=== PATIENT | female | born 1945 | race Caucasian/White ===

== ENCOUNTER 2018-03-09 14:48 | Emergency (ER) | payer MEDICARE, BC, SELFPAY ==
[2018-03-09 14:58] VITALS: BP 155/89; PULSE 74; RESP 20; TEMP 36.7; O2SAT 97
--- NOTE | 2018-03-09 17:12 | DI.RAD.S_ITS ---
PROCEDURE: XR ANKLE RT MIN 3V INDICATIONS: ankle pain TECHNIQUE: 3 views of the ankle were acquired. COMPARISON: None. FINDINGS: Bones: No fractures or dislocations. Ankle mortise is normally aligned. No suspicious bony lesions. Soft tissues: No tibiotalar joint effusion. Achilles tendon appears normal. IMPRESSION: No acute radiographic findings. If pain persists, repeat imaging in 5-7 days is recommended to exclude occult fracture. Dictated by: Fern Kraus M.D. on 03/09/2018 at 17:32 Approved by: Fern Kraus M.D. on 03/09/2018 at 17:33
[2018-03-09 18:02] VITALS: BP 150/77; PULSE 61; RESP 15; TEMP 36.6; O2SAT 98
--- NOTE | 2018-03-09 22:40 | ED_ITS ---
HPI - Extremity Injury (Lower) <RAFAELA Waldrop - Last Filed: 03/09/18 22:45> General Chief Complaint: Extremity Injury, Lower Stated Complaint: left leg pain after stepping on something Time Seen by Provider: 03/09/18 17:00 Source: patient Mode of arrival: ambulatory Limitations: no limitations History of Present Illness HPI Narrative: Patient is a 72-year-old female who presents with chief complaint of left ankle pain for 2 weeks. She states she stepped on a piece of grass and slipped with her ankle rolling in. The patient initially declined an x-ray as she was worried about radiation, later requested an x-ray. She denies any numbness tingling or weakness. She states she has applied ice. She states she has never hurt her ankle before. She was requesting an x-ray. Related Data Home Medications Medication Instructions Recorded Confirmed ascorbic acid (vitamin C) [Vitamin 500 mg PO DAILY 03/09/18 03/09/18 C] atenolol [Tenormin] 1 tab PO QPM 03/09/18 03/09/18 cholecalciferol (vitamin D3) 1,000 unit PO DAILY 03/09/18 03/09/18 [Vitamin D3] Allergies Allergy/AdvReac Type Severity Reaction Status Date / Time epinephrine AdvReac Verified 03/09/18 15:07 Review of Systems <RAFAELA Waldrop - Last Filed: 03/09/18 22:45> Review of Systems GENERAL: Denies chills, fatigue, malaise, fever, sweats. HEENT: Denies sinus pain, ear pain, sore throat, difficulty swallowing, dizziness. RESPIRATORY: Denies dyspnea, cough, wheezing, hemoptysis, sputum. CARDIOVASCULAR: Denies chest pain, palpitations, orthopnea, edema, GASTROINTESTINAL: Denies nausea, vomiting, abdominal pain, diarrhea, constipation, melena. : Denies dysuria, frequency, incontinence, hematuria, urinary retention. MUSCULOSKELETAL: See HPI SKIN: Denies rash, skin lesions, or other NEUROLOGIC: Denies weakness, headache, numbness, change in speech, confusion, seizures, incoordination. PSYCHIATRIC: No concerning psychosocial issues. 12 point review of systems is negative except for those stated above Exam <RAFAELA Waldrop - Last Filed: 03/09/18 22:45> Narrative Exam Narrative: GENERAL: This is a well-nourished, well-developed patient, No acute distress HEAD: Atraumatic. Normocephalic. No temporal or scalp tenderness. EYES: Pupils equal round and reactive. Extraocular motions intact. No scleral icterus. No injection or drainage. ENT: Nose without bleeding, purulent drainage or septal hematoma. Throat without erythema, tonsillar hypertrophy or exudate. Uvula midline. Airway patent. NECK: Trachea midline. No JVD or lymphadenopathy. Supple, nontender, no meningeal signs. CARDIOVASCULAR: Regular rate and rhythm. RESPIRATORY: Clear to auscultation. Breath sounds equal bilaterally. No wheezes , rales, or rhonchi. GASTROINTESTINAL: Abdomen soft, non-tender, nondistended. No hepato-splenomegaly , or palpable masses. No guarding. EXTREMITIES: Left ankle pain to palpation generalized. Patient is able to flex, extend pronate and supinate left foot. Positive left foot pulses. BACK: Nontender without deformity or crepitance. No flank tenderness. NEURO: AOx3. SKIN: No rash or erythema. no erythema, ecchymosis or swelling noted left ankle. Initial Vital Signs Initial Vital Signs: Vital Signs Temperature 98.0 F 03/09/18 14:58 Pulse Rate 74 03/09/18 14:58 Respiratory Rate 20 03/09/18 14:58 Blood Pressure 155/89 H 03/09/18 14:58 Pulse Oximetry 97 03/09/18 14:58 <Elbert Sánchez DO - Last Filed: 03/12/18 18:19> Initial Vital Signs Initial Vital Signs: Vital Signs Temperature 98.0 F 03/09/18 14:58 Pulse Rate 74 03/09/18 14:58 Respiratory Rate 20 03/09/18 14:58 Blood Pressure 155/89 H 03/09/18 14:58 Pulse Oximetry 97 03/09/18 14:58 Course <CELESTE Waldrop - Last Filed: 03/09/18 22:45> Orders Ordered: ED Orders 03/09/18 17:12 XR ankle RT min 3V Stat Vital Signs - 8 hr 03/09/18 14:58 03/09/18 18:02 Temperature 98.0 F 97.9 F Pulse Rate 74 61 Respiratory Rate 20 15 Blood Pressure 155/89 H Blood Pressure [Right Arm] 150/77 H Pulse Oximetry 97 98 <Elbert WagnerDO shania - Last Filed: 03/12/18 18:19> Orders Ordered: ED Orders 03/09/18 17:12 XR ankle RT min 3V Stat Vital Signs - 8 hr 03/09/18 14:58 03/09/18 18:02 Temperature 98.0 F 97.9 F Pulse Rate 74 61 Respiratory Rate 20 15 Blood Pressure 155/89 H Blood Pressure [Right Arm] 150/77 H Pulse Oximetry 97 98 MDM - Extremity Injury (Lower) <CELESTE Waldrop - Last Filed: 03/09/18 22:45> Differential Diagnosis Likely ankle sprain and strain Imaging Data ankle xray : Radiologist's impression: [address] [address] XRay Report Signed Patient: Ruiz Moran#: [id number] : 5Acct:[id number] Age/Sex: 72 / FDate of Service: 03/09/18 Loc: ED Accession Number: [id number] Procedure: XR ankle RT min 3V Ordering Provider: Hilaria Pierre PROCEDURE: XR ANKLE RT MIN 3V INDICATIONS: ankle pain TECHNIQUE: 3 views of the ankle were acquired. COMPARISON: None. FINDINGS: Bones: No fractures or dislocations. Ankle mortise is normally aligned. No suspicious bony lesions. Soft tissues: No tibiotalar joint effusion. Achilles tendon appears normal. IMPRESSION: No acute radiographic findings. If pain persists, repeat imaging in 5-7 days is recommended to exclude occult fracture. Dictated by: Fern Kraus M.D. on 03/09/2018 at 17:32 Approved by: Fern Kraus M.D. on 03/09/2018 at 17:33 [facility] Narrative Medical decision making narrative: the patient is a 72-year-old female with left ankle pain. X-ray illustrate no fracture. She is ambulating without problems in the emergency department. I discussed at length conservative measures as well as follow up with primary care provider. Patient states she will follow up with her primary care provider if no improvement. No questions or concerns upon discharge. Discharge Plan Departure Patient Disposition: Home Clinical Impression: Acute ankle pain Discharge Date/Time: 03/09/18 18:21 Interventions: ED Discharge Assessment Last Done: 03/09/18 18:20 Instructions: How To Perform RICE (Rest, Ice, Compress, Elevate), DI for Ankle Pain Activity Restrictions/Additional Instructions: Your x-ray today came back negative for a fracture. Please follow-up with primary care provider if worsening or no improvement. Please follow-up in about 2 weeks if needed. Please use ice 20 min for every 3-4 hours. Please use [id number] pain medications as needed and able for pain. Prescriptions: No Action atenolol [Tenormin] 25 mg tablet 1 tab PO QPM RF: 0 ascorbic acid (vitamin C) [Vitamin C] 500 mg Tablet 500 mg PO DAILY RF: 0 cholecalciferol (vitamin D3) [Vitamin D3] 1,000 unit Capsule 1,000 unit PO DAILY RF: 0 <Elbert Sánchez DO - Last Filed: 03/12/18 18:19> Angie ED Attending Amee Attestation: I was available for consultation during this patient's emergency department encounter
== END 2018-03-09 18:21 | disposition home or self-care (01) ==
PROVIDERS: Emergency Provider Nurse Practitioner Family
DX: M25.572 Pain in left ankle and joints of left foot (principal); W18.41XA Slipping, tripping and stumbling without falling due to stepping on object, initial encounter
CPT/HCPCS: 29540; 73610; 99282; 99283

== ENCOUNTER 2020-10-18 14:30 | Emergency (ER) | payer MEDICARE, BC, SELFPAY ==
[2020-10-18 14:39] VITALS: BP 140/87; PULSE 107; RESP 14; TEMP 36.6; O2SAT 96; BMI 32.2
--- NOTE | 2020-10-18 14:44 | DI.RAD.S_ITS ---
PROCEDURE: XR ACUTE ABDOMEN SERIES INDICATIONS: Abdominal pain, No BM TECHNIQUE: One view chest and two views of the abdomen were acquired. COMPARISON: None. FINDINGS: Surgical changes and devices: None. Chest: Lungs are clear. Heart size is normal. No pleural effusions. No pneumoperitoneum. Abdomen: Prominent stool in the colon. Scattered small bowel gas. No dilated loops of bowel seen. No suspicious calcifications. Visualized solid organ contours appear normal. Bones: No suspicious bony lesions. Bilateral hip DJD. IMPRESSION: No acute cardiopulmonary abnormality. Prominent stool in the colon. Worrisome for constipation. Dictated by: Carmelo Barrow M.D. on 10/18/2020 at 15:19 Approved by: Carmelo Barrow M.D. on 10/18/2020 at 15:30
--- NOTE | 2020-10-18 15:43 | ED_ITS ---
HPI - Abdominal Pain General Chief Complaint: Abdominal Pain Stated Complaint: constipated for 16-17 days/shaky Time Seen by Provider: 10/18/20 14:32 Source: patient Mode of arrival: Ambulatory Limitations: no limitations History of Present Illness HPI narrative: 75F nonsmoker with HTN and chronic constipation presents with a chief complaint of 16-17 days of generalized abdominal cramping and decreased bowel movements. She does not complain much in the way of pain but just feels bloated and uncomfortable. She denies any nausea or vomiting but has decreased appetite. She has had no fever or chills. She denies any recent dietary change other than her slight decrease in appetite. She denies any use of pain medications. She denies the routine use of any laxatives and states that during this episode she has taken 2 doses of MiraLax and 2 doses of docusate without much in the way of help. She has had a few small hard firm stools that have provided little relief. She denies any hemorrhoids or rectal bleeding MD complaint: abdominal pain Onset (ago): day(s) Pain Consistency: intermittent Location: diffuse Severity: mild Quality: cramping Migration to: no migration Relieving factors: nothing Exacerbating factors: nothing Associated symptoms: constipation Related Data Home Medications Medication Instructions Recorded Confirmed ascorbic acid (vitamin C) [Vitamin 500 mg PO DAILY 03/09/18 03/09/18 C] atenolol [Tenormin] 1 tab PO QPM 03/09/18 03/09/18 cholecalciferol (vitamin D3) 1,000 unit PO DAILY 03/09/18 03/09/18 [Vitamin D3] Allergies Allergy/AdvReac Type Severity Reaction Status Date / Time epinephrine AdvReac Verified 10/18/20 14:39 Review of Systems Constitutional Constitutional: Denies chills, Denies fatigue, Denies fever(s), Denies frequent falls, Denies lethargy and Denies weakness Eyes Eyes: Denies change in vision, Denies eye discharge, Denies irritation and Asher es loss of vision ENT Ears, Nose, Mouth, and Throat: Denies change in voice, Denies dizziness, Denies neck pain, Denies sore throat and Denies throat swelling Cardiovascular Cardiovascular: Denies chest pain, Denies irregular heart rhythm, Denies lightheadedness, Denies palpitations, Denies dyspnea, Denies dyspnea on exertion and Denies orthopnea Respiratory Respiratory: Denies cough, Denies dyspnea, Denies dyspnea on exertion and Denies wheezing Gastrointestinal Gastrointestinal: Reports abdominal pain, Denies change in bowel habits, Reports constipation, Denies diarrhea, Denies nausea and Denies vomiting Musculoskeletal Musculoskeletal: Denies neck pain and Denies numbness Integumentary/Breasts Skin/Breast: Denies pruritus, Denies erythema, Denies rash and Denies wounds Neurologic Neurologic: Denies behavioral changes, Denies confusion, Denies dizziness, Denies frequent falls, Denies loss of vision, Denies numbness and Denies weakness Psychiatric Psychiatric: Denies anxiety, Denies behavioral changes, Denies confusion, Denies depression, Denies homicidal ideation and Denies suicidal ideation Endocrine Endocrine: Denies fatigue, Denies flushing and Denies palpitations Hematologic/Lymphatic Hematologic/Lymphatic: Denies easy bruising Allergic/Immunologic Allergic/Immunologic: Denies urticaria, Denies throat swelling and Denies wheezing Patient History Social History Smoking Status: Unknown if ever smoked Smoking Status: Unknown if ever smoked alcohol intake frequency: holidays/special occasions only Substance Use Type: does not use Exam Narrative Exam Narrative: GENERAL: [75] year old patient appears stated age. Well- developed patient, in mild distress. HEAD: Atraumatic. Normocephalic. EYES: Pupils equal round and reactive. Extraocular motions intact. No scleral icterus. No injection or drainage. ENT: Nose without bleeding, purulent drainage. Throat without erythema, tonsillar hypertrophy or exudate. Airway patent. NECK: Trachea midline. Non tender CARDIOVASCULAR: Regular rate and rhythm without murmurs, gallops, or rubs. RESPIRATORY: Clear to auscultation. Breath sounds equal bilaterally. No wheezes, rales, or rhonchi. GASTROINTESTINAL: Abdomen soft, non-tender, nondistended. Bowel sounds present in all 4 quadrants, however these sounds are slightly decreased. Incision in the right lower quadrant from hernia rap[place] a few months ago is clean, dry and intact without any underlying induration, fluctuance, warmth or erythema. RECTAL: Firm stool felt high in the rectal vault, unable to manually disimpact, no evidence of fissure or hemorrhoid. EXTREMITIES: No edema or joint tenderness. BACK: Nontender without deformity or crepitance. No flank tenderness. NEURO: AOx3. SKIN: No rash or erythema of visible areas Initial Vital Signs Initial Vital Signs: Vital Signs Temperature 97.9 F 10/18/20 14:39 Pulse Rate 107 H 10/18/20 14:39 Respiratory Rate 14 10/18/20 14:39 Blood Pressure 140/87 10/18/20 14:39 Pulse Oximetry 96 10/18/20 14:39 Course Orders Ordered: ED Orders 10/18/20 14:44 XR acute abdomen series Stat Vital Signs Vital signs: Vital Signs - 8 hr 10/18/20 14:39 10/18/20 15:56 Temperature 97.9 F 98.8 F Pulse Rate 107 H 73 Respiratory Rate 14 16 Blood Pressure 140/87 129/73 Pulse Oximetry 96 96 MDM - Abdominal Pain Imaging Data Abdominal x-ray: Radiologist's Impression: [address] [id number] ReportSigned Patient: Ruiz Moran#: [id number]: 5Acct:[id number]/Sex: 75 / FDate of Service: 10/18/20Loc: EDAccession Number: [id number] Procedure: XR acute abdomen series Ordering Provider: Praveen Duffy D.O. PROCEDURE: XR ACUTE ABDOMEN SERIES INDICATIONS: Abdominal pain, No BM TECHNIQUE: One view chest and two views of the abdomen were acquired. COMPARISON: None. FINDINGS: Surgical changes and devices: None. Chest: Lungs are clear. Heart size is normal. No pleural effusions. No pneumoperitoneum. Abdomen: Prominent stool in the colon. Scattered small bowel gas. No dilated loops of bowel seen. No suspicious calcifications. Visualized solid organ contours appear normal. Bones: No suspicious bony lesions. Bilateral hip DJD. IMPRESSION: No acute cardiopulmonary abnormality. Prominent stool in the colon. Worrisome for constipation. Dictated by: Carmelo Barrow M.D. on 10/18/2020 at 15:19 Approved by: Carmelo Barrow M.D. on 10/18/2020 at 15:30 MDM Narrative Medical decision making narrative: Multiple etiologies for patient's symptoms considered including: [Constipation versus bowel obstruction versus impaction versus other] Patient's symptoms improved over duration of stay with above-stated therapies. Findings and discharge diagnosis discussed with patient/family followed by verbalization of understanding Return precautions discussed with patient/family whom verbalize understanding. Discharge Plan Departure Patient Disposition: Home Clinical Impression: Constipation Qualifiers: Constipation type: unspecified constipation type Qualified Code(s): K59.00 - Constipation, unspecified Instructions: DI for Constipation Activity Restrictions/Additional Instructions: *You have been diagnosed with [ abdominal pain due to constipation ] *What to do: *Take over the counter medications as directed: 1. Metamucil - is a bulk forming laxative and adds fiber 2. Colace - softens your stool 3. Dulcolax suppository - stimulates your bowels *Follow up with your primary care provider in 2-3 days, call for appointment *Return to ER if you should have any new, worsening or concerning symptoms *Drink plenty of water and eat foods high in fiber *Stay as active as you can as this helps move your bowels as well Prescriptions: No Action atenolol [Tenormin] 25 mg tablet 1 tab PO QPM RF: 0 ascorbic acid (vitamin C) [Vitamin C] 500 mg Tablet 500 mg PO DAILY RF: 0 cholecalciferol (vitamin D3) [Vitamin D3] 1,000 unit Capsule 1,000 unit PO DAILY RF: 0 Referrals: Linsey Still MD [Primary Care Provider] -
[2020-10-18 15:56] VITALS: BP 129/73; PULSE 73; RESP 16; TEMP 37.1; O2SAT 96
== END 2020-10-18 15:56 | disposition home or self-care (01) ==
PROVIDERS: Emergency Provider Emergency Medicine; PCP Family Medicine
DX: K59.00 Constipation, unspecified (principal)
CPT/HCPCS: 74022; 99283

== ENCOUNTER 2023-04-09 16:43 | Emergency (ER) | payer MEDICARE, BC, SELFPAY ==
[2023-04-09 16:49] VITALS: BP 157/79; PULSE 77; RESP 18; TEMP 36.6; O2SAT 96; BMI 34.0
--- NOTE | 2023-04-09 17:24 | ED_ITS ---
HPI - URI/Sore Throat <Marnie Martinez PA-C - Last Filed: 04/09/23 18:59> General Chief Complaint: Upper Respiratory Symptoms Stated Complaint: lt sided throat pain, cough Time Seen by Provider: 04/09/23 17:07 Source: patient Mode of arrival: Ambulatory History of Present Illness HPI Narrative: Patient is a 77-year-old female who presents with 5 days of progressively worse left-sided sore throat without fever. She denies fever or chills, or runny nose. She does endorse a mild but progressively increasing cough productive of yellow sputum. She is traveling in a couple of days and very worried about [place] g to the airport with these symptoms. She does not have any difficulty swallowing or managing her secretions but she does have painful swallowing. She has been taking vitamin-D, vitamin-C, elderberry and her blood pressure medicine. Related Data Home Medications Medication Instructions Recorded Confirmed ascorbic acid (vitamin C) 500 mg 500 mg PO DAILY 03/09/18 03/09/18 tablet (Vitamin C) atenolol 25 mg tablet 1 tab PO QPM 03/09/18 03/09/18 cholecalciferol (vitamin D3) 25 1,000 unit PO DAILY 03/09/18 03/09/18 mcg (1,000 unit) capsule (Vitamin D3) Allergies Allergy/AdvReac Type Severity Reaction Status Date / Time epinephrine AdvReac Verified 10/18/20 14:39 Review of Systems <Marnie Martinez PA-C - Last Filed: 04/09/23 18:59> Review of Systems ROS Unobtainable: All systems reviewed & are unremarkable except as noted in HPI and below Patient History <Marnie Martinez PA-C - Last Filed: 04/09/23 18:59> Social History Smoking Status: Never smoker Smoking Status: Never smoker alcohol intake frequency: holidays/special occasions only Substance Use Type: does not use Exam <Marnie Martinez PA-C - Last Filed: 04/09/23 18:59> Narrative Exam Narrative: GENERAL: 77 year old patient appears stated age. Well-developed patient, in no distress. NEURO: AOx3. HEAD: Atraumatic. Normocephalic. EYES: Pupils equal round and reactive. Extraocular motions intact. No scleral icterus. No injection or drainage. ENT: Nose without bleeding or purulent drainage. Throat with moderate erythema, no tonsillar hypertrophy or exudate. Airway patent. Palpable tender left lymph nodes. No peritonsillar abscess, uvula midline. No pain or swelling under the tongue. No mastoid tenderness. TMs pearly coy. NECK: Trachea midline CARDIOVASCULAR: Regular rate and rhythm without murmurs, gallops, or rubs. RESPIRATORY: Clear to auscultation. Breath sounds equal bilaterally. No wheezes, rales, or rhonchi. SKIN: No rash or erythema of visible areas Initial Vital Signs Initial Vital Signs: Vital Signs Temperature 97.9 F 04/09/23 16:49 Pulse Rate 77 04/09/23 16:49 Respiratory Rate 18 04/09/23 16:49 Blood Pressure 157/79 H 04/09/23 16:49 Pulse Oximetry 96 04/09/23 16:49 Oxygen Delivery Method Room Air 04/09/23 16:49 <Hilaria Bass MD - Last Filed: 04/14/23 18:20> Initial Vital Signs Initial Vital Signs: Vital Signs Temperature 97.9 F 04/09/23 16:49 Pulse Rate 77 04/09/23 16:49 Respiratory Rate 18 04/09/23 16:49 Blood Pressure 157/79 H 04/09/23 16:49 Pulse Oximetry 96 04/09/23 16:49 Oxygen Delivery Method Room Air 04/09/23 16:49 Course <Marnie Martinez PA-C - Last Filed: 04/09/23 18:59> Orders Ordered: ED Orders 04/09/23 17:22 Strep Grp A by PCR Rapid Stat Throat Culture Stat Vital Signs Vital signs: Vital Signs - 8 hr 04/09/23 16:49 04/09/23 18:07 Temperature 97.9 F Pulse Rate 77 79 Respiratory Rate 18 19 Blood Pressure 157/79 H 152/80 H Pulse Oximetry 96 97 Oxygen Delivery Method Room Air Room Air <Hilaria Bass MD - Last Filed: 04/14/23 18:20> Orders Ordered: ED Orders 04/09/23 17:22 Strep Grp A by PCR Rapid Stat Throat Culture Stat Vital Signs Vital signs: Vital Signs - 8 hr 04/09/23 16:49 04/09/23 18:07 Temperature 97.9 F Pulse Rate 77 79 Respiratory Rate 18 19 Blood Pressure 157/79 H 152/80 H Pulse Oximetry 96 97 Oxygen Delivery Method Room Air Room Air MDM - URI/Sore Throat <Marnie Martinez PA-C - Last Filed: 04/09/23 18:59> Lab Data Labs: Lab Results 04/09/23 Range/Units 17:22 Group A Strep (PCR) Negative (Negative) MDM Narrative Medical decision making narrative: Multiple etiologies for patient's symptoms considered including, but not limited to: Strep pharyngitis, viral pharyngitis, no physical exam evidence of peritonsillar abscess, Blayne's angina, neck deep space infection, mastoiditis. Rapid strep negative. We will send throat culture and notify patient if positive. In the meantime, I suggest continued supportive care with [id number]-[id number] pain medicines, tea with honey, warm compresses. Patient's symptoms improved over duration of stay with above-stated therapies. Findings and discharge diagnosis discussed with patient/family followed by verbalization of understanding Return precautions discussed with patient/family whom verbalize understanding of diagnosis and plan <Hilaria Bass MD - Last Filed: 04/14/23 18:20> Lab Data Labs: Lab Results 04/09/23 Range/Units 17:22 Group A Strep (PCR) Negative (Negative) Discharge Plan Departure Patient Disposition: Home Clinical Impression: Acute viral pharyngitis, Anterior cervical lymphadenopathy Instructions: DI for Viral Pharyngitis Activity Restrictions/Additional Instructions: *You have been diagnosed with viral pharyngitis, the test for strep throat was negative. We will watch the culture in the lab to see if any other infection grows. I suspect that the pain your feeling is due to the inflammation in your throat as well as the enlarged lymph node on the left side. I would advise you to take Tylenol for pain, continue hydration, tea with lemon and honey. Some people find it beneficial to gargle with warm salt water which can help decrease the swelling in the throat. *What to do: *Please continue to take your regular medications as directed. [ ] New medication prescriptions sent to your pharmacy: [ ] [ ] New medication written as a paper prescription [x] No new medications given *Please follow up with your primary care provider in 2-3 days, call for an appointment. Let them know you were seen in the Emergency Department and that we ask that you be seen in follow up. We will electronically transmit a record of today's note if your PCP is in our system *If you do not have a primary care provider please contact the [facility] Resource line at [phone]. They will ask some questions about your medical history and help get you set up with a doctor in the community. *Return to Emergency Department if you should have any new, worsening or concerning symptoms, such as [fever greater than 101 F, shaking chills, worsening pain, persistent vomiting or other concerning symptoms]. Prescriptions: No Action atenolol [Tenormin] 25 mg tablet 1 tab PO QPM Patient Comments: TAKE ONE TABLET BY MOUTH EVERY DAY ascorbic acid (vitamin C) [Vitamin C] 500 mg Tablet 500 mg PO DAILY cholecalciferol (vitamin D3) [Vitamin D3] 1,000 unit Capsule 1,000 unit PO DAILY Referrals: Linsey Still MD [Primary Care Provider] - Stand Alone Forms: Patient Portal/API ED Sign-out <Hilaria Bass MD - Last Filed: 04/14/23 18:20> Cosign ED Attending Cosyolandaature Attestation: I DID NOT SEE THIS PATIENT. I WAS AVAILABLE ALL TIMES FOR CONSULTATION.
[2023-04-09 17:56] LABS: Strep Grp A by PCR Rapid Negative (Negative)
[2023-04-09 18:07] VITALS: BP 152/80; PULSE 79; RESP 19; O2SAT 97
== END 2023-04-09 18:10 | disposition home or self-care (01) ==
PROVIDERS: Emergency Provider Physician Assistant; PCP Family Medicine
DX: J02.8 Acute pharyngitis due to other specified organisms (principal)
CPT/HCPCS: 87070; 87651; 99281; 99283